=== PATIENT | female | born 1955 | race Caucasian/White ===

== ENCOUNTER → 2017-01-30 | Outpatient (CLI) | payer BC ==
--- NOTE | 2017-02-02 08:50 | MM ---
Reason for exam: history of breast cancer, conservation therapy. Last mammogram was performed 1 year ago. History: Patient is postmenopausal, has history of breast cancer at age 46, and has history of high-risk lesion on a previous biopsy at age 46. Excisional biopsy of the left breast, August 24, 2001. Malignant stereotactic core biopsy of the left breast, July 23, 2001. Lumpectomy of the left breast. Took tamoxifen for 1 year beginning at age 46. Physical Findings: Nurse did not find any significant physical abnormalities on exam. MG 3D Diag Mammo W/Cad SANDIP Bilateral CC and MLO view(s) were taken. Prior study comparison: January 21, 2016, bilateral MG 3d diag mammo w/cad SANDIP. December 11, 2014, bilateral MG diagnostic mammo w CAD SANDIP. February 11, 2012, CAD bilateral diagnostic mammogram. December 17, 2010, CAD bilateral diagnostic mammogram. There are scattered fibroglandular densities. No significant new findings when compared with previous films. These results were verbally communicated with the patient and result sheet given to the patient on 01/30/17. ASSESSMENT: Negative, BI-RAD 1 RECOMMENDATION: Follow-up diagnostic mammogram of both breasts in 1 year.
== END | disposition home or self-care (01) ==
LOC: RADMAMWWP 09:27
PROVIDERS: ATTEND Family Medicine
DX: N63 Unspecified lump in breast (principal)
CPT/HCPCS: G0204; G0279

== ENCOUNTER → 2018-04-01 | Outpatient (CLI) | payer BC ==
--- NOTE | 2018-04-07 22:08 | HM ---
HOLTER MONITOR REPORT The patient was monitored for 24 hours. The patient's rhythm is sinus mechanism with normal conduction. The average rate 88 beats per minute. Minimum 58, maximum 148 beats per minute. Ventricular ectopic activity was present in the form of single PVCs. Supraventricular ectopic activity was present in the form of single PVCs. No symptoms were reported. CONCLUSION: 1. Sinus mechanism baseline rhythm. 2. Rare ventricular ectopic activity. 3. Rare supraventricular ectopic activity. 4. No symptoms were reported. MMODL / IJN: [id number] /
== END | disposition home or self-care (01) ==
LOC: RADECHMAIN 11:28
PROVIDERS: ATTEND Family Medicine
DX: R00.2 Palpitations (principal)
CPT/HCPCS: 93225; 93226

== ENCOUNTER → 2018-07-14 | Outpatient (CLI) | payer MEDICARE ==
--- NOTE | 2018-07-14 12:15 | XR ---
EXAMINATION TYPE: XR thoracic spine complete DATE OF EXAM: 07/14/2018 COMPARISON: NONE HISTORY: Pain Alignment is anatomic. There is no compression deformities. Degenerative change involving the visual ized lower cervical spine. Moderate severe multilevel degenerative disc disease. There is a mild supe rior endplate compression fracture age-indeterminate in the midthoracic region. Pedicles are intact. Biapical pleural thickening and calcification. IMPRESSION: 1. Multilevel moderate to severe degenerative disc disease. Mild superior endplate compression fractu re in the mid thoracic spine is of indeterminate age. Correlate with MRI.
== END | disposition home or self-care (01) ==
LOC: RADXRMAIN 11:11
PROVIDERS: ATTEND Family Medicine
DX: M51.34 Other intervertebral disc degeneration, thoracic region (principal); M48.54XA Collapsed vertebra, not elsewhere classified, thoracic region, initial encounter for fracture
CPT/HCPCS: 72072

== ENCOUNTER → 2018-08-02 | Outpatient (CLI) | payer MEDICARE ==
--- NOTE | 2018-08-02 14:52 | MR ---
EXAMINATION TYPE: MR thoracic spine wo con DATE OF EXAM: 08/02/2018 COMPARISON: Plain films 07/14/2018 HISTORY: Intervertebral disc degeneration, thoracic Standard multiplanar, multisequence MRI departmental protocol Multiplanar, multisequence images of the thoracic spine were acquired 3.0 Nuvia magnet. FINDINGS: There is a superior endplate compression deformity of T7 with approximately 30% loss of an terior vertebral body height. No posterior wall displacement is evident. No spinal canal stenosis pre sent. T4-5: Small central disc herniation is present without cord contact. No spinal canal stenosis is pres ent. T7-8: Small left paracentral disc bulge is present with mild anterior thecal sac contact. No cord con tact is evident. No spinal canal stenosis present. Vertebral body heights are preserved. There is a kyphosis in the upper thoracic spine. Disc desiccati on is present diffusely. Spinal cord maintains normal signal through its visualized course. IMPRESSION: 1. Superior endplate compression of T7 without retropulsion. No stenosis is present. 2. Degenerative disc changes with small disc herniations present T4-5 and T7-8 discussed above. No co rd contact is evident.
== END | disposition home or self-care (01) ==
LOC: RADMRIMAIN 06:52
PROVIDERS: ATTEND Physician Assistant
DX: M51.24 Other intervertebral disc displacement, thoracic region (principal); M51.34 Other intervertebral disc degeneration, thoracic region; G95.29 Other cord compression
CPT/HCPCS: 72146

== ENCOUNTER → 2018-08-03 | Outpatient (CLI) | payer MEDICARE ==
--- NOTE | 2018-08-03 08:59 | MM ---
Reason for exam: additional evaluation requested from prior study. Last mammogram was performed 1 year and 6 months ago. History: Patient is postmenopausal, has history of breast cancer at age 46, and has history of high-risk lesion on a previous biopsy at age 46. Excisional biopsy of the left breast, August 24, 2001. Malignant stereotactic core biopsy of the left breast, July 23, 2001. Lumpectomy of the left breast. Took tamoxifen for 1 year beginning at age 46. Physical Findings: Nurse did not find any significant physical abnormalities on exam. MG 3D Diag Mammo W/Cad SANDIP Bilateral CC and MLO view(s) were taken. Prior study comparison: January 30, 2017, bilateral MG 3d diag mammo w/cad SANDIP. January 21, 2016, bilateral MG 3d diag mammo w/cad SANDIP. The breast tissue is heterogeneously dense. This may lower the sensitivity of mammography. Benign calcifications bilaterally. No significant new findings when compared with previous films. These results were verbally communicated with the patient and result sheet given to the patient on 08/03/18. ASSESSMENT: Benign, BI-RAD 2 RECOMMENDATION: Follow-up diagnostic mammogram of both breasts in 1 year.
== END | disposition home or self-care (01) ==
LOC: RADBDWWP 08:03
PROVIDERS: ATTEND Family Medicine
DX: Z08 Encounter for follow-up examination after completed treatment for malignant neoplasm (principal); Z85.3 Personal history of malignant neoplasm of breast
CPT/HCPCS: 77066; G0279; 77062

== ENCOUNTER → 2018-08-10 | Outpatient (CLI) | payer MEDICARE ==
--- NOTE | 2018-08-10 15:14 | BD ---
EXAMINATION TYPE: Axial Bone Density DATE OF EXAM: 08/10/2018 COMPARISON: 2009 CLINICAL HISTORY: post menopausal, Z 78.0 Height: 5'1 1/2 Weight: 142 FRAX RISK QUESTIONS: Family History (Parent hip fracture): y Secondary Osteoporosis: 3. Menopause before 45: y RISK FACTORS HISTORY OF: Postmenopausal woman: y MEDICATIONS: Thyroid Medications: Which medication: Levothyroxine How Lon years Additional Medications: high blood pressure Additional History: breast cancer age 46 EXAM MEASUREMENTS: Bone mineral densitometry was performed using the [employer] System. Bone mineral density as measured about the Lumbar spine is: ----- L1-L4(G/cm2): 0.842 T Score Values are as follows: ----- L2: -3.4 ----- L3: -3.1 ----- L4: -2.1 ----- L1-L 4:-2.8 Bone mineral density has: Decreased -8.2% since study of: 05/17/2010 Bone mineral density about the R hip (g/cm2): 0.739 Bone mineral density about the L hip (g/cm2): 0.727 T Score values are as follows: -----R Neck: -2.2 -----L Neck: -2.2 -----R Total: -2.4 -----L Total: -2.6 Bone mineral density has: Decreased -12.4% since study of: 05/17/2010 IMPRESSION: Osteoporosis (T Score less than -2.5). There is increased fracture risk and therapy is usually indicated based on age. Re-Screen 1-2 years. NOTE: T-SCORE=SD OF THE YOUNG ADULT MEAN.
== END | disposition home or self-care (01) ==
LOC: RADBDWWP 10:36
PROVIDERS: ATTEND Family Medicine
DX: M81.0 Age-related osteoporosis without current pathological fracture (principal); Z78.0 Asymptomatic menopausal state
CPT/HCPCS: 77080

== ENCOUNTER → 2018-08-31 | Outpatient (CLI) | payer MEDICARE ==
[~2018-08-31] MED LIST: DENOSUMAB 60 MG/ML 1 ML SYRINGE SQ ONE
[2018-08-31 14:44] VITALS: BP 139/79; PULSE 54; RESP 16; TEMP 97.8
== END ==
LOC: PROCWHC3 14:24
PROVIDERS: ATTEND Midwife
DX: M81.0 Age-related osteoporosis without current pathological fracture (principal)
CPT/HCPCS: 96372; J0897

== ENCOUNTER → 2019-03-02 | Outpatient (CLI) | payer MEDICARE ==
[~2019-03-02] MED LIST changes: +DENOSUMAB 60 MG/ML 1 ML SYRINGE SQ NR; -DENOSUMAB 60 MG/ML 1 ML SYRINGE SQ ONE
[2019-03-02 10:14] VITALS: BP 149/87; PULSE 84; RESP 16; TEMP 98.2
== END ==
LOC: PROCWHC3 10:03
PROVIDERS: ATTEND Midwife
DX: M81.0 Age-related osteoporosis without current pathological fracture (principal)
CPT/HCPCS: 96372; J0897

== ENCOUNTER → 2019-08-04 | Outpatient (CLI) | payer MEDICARE ==
--- NOTE | 2019-08-04 11:12 | MM ---
Reason for exam: additional evaluation requested from prior study. Last mammogram was performed 1 year ago. History: Patient is postmenopausal, has history of breast cancer at age 46, and has history of high-risk lesion on a previous biopsy at age 46. Excisional biopsy of the left breast, August 24, 2001. Malignant stereotactic core biopsy of the left breast, July 23, 2001. Lumpectomy of the left breast. Took tamoxifen for 1 year beginning at age 46. Physical Findings: Nurse did not find any significant physical abnormalities on exam. MG 3D Diag Mammo W/Cad SANDIP Bilateral CC and MLO view(s) were taken. Prior study comparison: August 03, 2018, bilateral MG 3d diag mammo w/cad SANDIP. January 30, 2017, bilateral MG 3d diag mammo w/cad SANDIP. The breast tissue is heterogeneously dense. This may lower the sensitivity of mammography. Finding #1: Architectural distortion in the upper quadrant of the left breast consistent with known excisional changes. Finding #2: There are typically benign round calcifications in both breasts. There is no discrete abnormality. These results were verbally communicated with the patient and result sheet given to the patient on 08/04/19. ASSESSMENT: Benign, BI-RAD 2 RECOMMENDATION: Follow-up diagnostic mammogram of both breasts in 1 year.
--- NOTE | 2019-08-05 11:44 | ECHOF ---
Referral Reason:K92.1 Bloody stools; R19.4 Change in bowel habits MEASUREMENTS -------- HEIGHT: 160.0 cm WEIGHT: 61.2 kg BP: RVIDd: 3.1 cm (< 3.3) IVSd: 0.9 cm (0.6 - 1.1) LVIDd: 3.0 cm (3.9 - 5.3) LVPWd: 0.9 cm (0.6 - 1.1) IVSs: 1.5 cm LVIDs: 1.5 cm LVPWs: 1.3 cm LAESV Index (A-L): 25.27 ml/m Ao Diam: 2.5 cm (2.0 - 3.7) AV Cusp: 1.6 cm (1.5 - 2.6) LA Diam: 2.9 cm (2.7 - 3.8) MV EXCURSION: 12.495 mm (> 18.000) MV EF SLOPE: 57 mm/s (70 - 150) EPSS: 0.2 cm MV E Brian: 0.82 m/s MV DecT: 242 ms MV A Brian: 0.78 m/s MV E/A Ratio: 1.05 RAP: 5.00 mmHg RVSP: 30.49 mmHg FINDINGS -------- Sinus rhythm. This was a technically good study. The left ventricular size is normal. Left ventricular wall thickness is normal. Overall left vent ricular systolic function is normal with, an EF between 55 - 60 %. The diastolic filling pattern is normal for the age of the patient 11.73. The right ventricle is normal in size. The left atrial size is normal. The right atrial size is normal. Interatrial and interventricular septum intact. The aortic valve is trileaflet and appears structurally normal. The mitral valve is normal. There is trace mitral regurgitation. The tricuspid valve appears structurally normal. Mild tricuspid regurgitation present. Right vent ricular systolic pressure is normal at < 35 mmHg. Pulmonic valve appears structurally normal. The aortic root size is normal. Normal inferior vena cava with normal inspiratory collapse consistent with estimated right atrial pre ssure of 5 mmHg. There is no pericardial effusion. CONCLUSIONS -------- 1. Sinus rhythm. 2. This was a technically good study. 3. The left ventricular size is normal. 4. Left ventricular wall thickness is normal. 5. Overall left ventricular systolic function is normal with, an EF between 55 - 60 %. 6. The diastolic filling pattern is normal for the age of the patient 11.73 7. The right ventricle is normal in size. 8. The left atrial size is normal. 9. The right atrial size is normal. 10. Interatrial and interventricular septum intact. 11. The aortic valve is trileaflet and appears structurally normal. 12. The mitral valve is normal. 13. There is trace mitral regurgitation. 14. The tricuspid valve appears structurally normal. 15. Mild tricuspid regurgitation present. 16. Right ventricular systolic pressure is normal at < 35 mmHg. 17. Pulmonic valve appears structurally normal. 18. The aortic root size is normal. 19. Normal inferior vena cava with normal inspiratory collapse consistent with estimated right atrial pressure of 5 mmHg. 20. There is no pericardial effusion. TRIAGE SPECIALIST: Elissa Benito RDCS
== END | disposition home or self-care (01) ==
LOC: RADMAMWWP 09:38
PROVIDERS: ATTEND Family Medicine
DX: R92.8 Other abnormal and inconclusive findings on diagnostic imaging of breast (principal); I07.1 Rheumatic tricuspid insufficiency; I10 Essential (primary) hypertension
CPT/HCPCS: 93306; 77066; G0279; 77062

== ENCOUNTER → 2019-09-05 | Outpatient (CLI) | payer MEDICARE ==
[~2019-09-05] MED LIST changes: -DENOSUMAB 60 MG/ML 1 ML SYRINGE SQ NR; +DENOSUMAB 60 MG/ML 1 ML SYRINGE SQ ONE
[2019-09-05 09:28] VITALS: PULSE 76; RESP 18; TEMP 98.1
[2019-09-05 09:33] VITALS: BP 171/96
== END | disposition home or self-care (01) ==
LOC: PROCWHC3 09:13
PROVIDERS: ATTEND Family Medicine
DX: M81.0 Age-related osteoporosis without current pathological fracture (principal)
CPT/HCPCS: 96372; J0897

== ENCOUNTER → 2020-09-06 | Outpatient (CLI) | payer MEDICARE ==
[~2020-09-06] MED LIST changes: +DENOSUMAB 60 MG/ML 1 ML SYRINGE SQ NR; -DENOSUMAB 60 MG/ML 1 ML SYRINGE SQ ONE
[2020-09-06 11:25] VITALS: BP 157/90; PULSE 103; RESP 16; TEMP 98.2
== END | disposition home or self-care (01) ==
LOC: PROCWHC3 11:16
PROVIDERS: ATTEND Family Medicine
DX: M81.0 Age-related osteoporosis without current pathological fracture (principal)
CPT/HCPCS: 96372; J0897

== ENCOUNTER → 2020-10-16 | Outpatient (CLI) | payer MEDICARE ==
--- NOTE | 2020-10-17 07:45 | MM ---
Reason for exam: additional evaluation requested from prior study. Last mammogram was performed 1 year and 2 months ago. History: Patient is postmenopausal, has history of breast cancer at age 46, and has history of high-risk lesion on a previous biopsy at age 46. Excisional biopsy of the left breast, August 24, 2001. Malignant stereotactic core biopsy of the left breast, July 23, 2001. Lumpectomy of the left breast. Took tamoxifen for 1 year beginning at age 46. Physical Findings: Nurse did not find any significant physical abnormalities on exam. MG 3D Diag Mammo W/Cad SANDIP Bilateral CC and MLO view(s) were taken. Prior study comparison: August 04, 2019, bilateral MG 3d diag mammo w/cad SANDIP. August 03, 2018, bilateral MG 3d diag mammo w/cad SANDIP. There are scattered fibroglandular densities. Benign oil cyst calcifications. Superior anterior asymmetric density disperses on additional views. 8 x 5mm oval circumscribed isodense to low density area persists on 3D central 6 o'clock left breast. These results were verbally communicated with the patient and result sheet given to the patient on 10/16/20. ASSESSMENT: Incomplete: need additional imaging evaluation, BI-RAD 0 RECOMMENDATION: Ultrasound of the left breast. at and just below nipple)
--- NOTE | 2020-10-17 07:46 | USB ---
Reason for exam: additional evaluation requested from abnormal screening. History: Patient is postmenopausal, has history of breast cancer at age 46, and has history of high-risk lesion on a previous biopsy at age 46. Excisional biopsy of the left breast, August 24, 2001. Malignant stereotactic core biopsy of the left breast, July 23, 2001. Lumpectomy of the left breast. Took tamoxifen for 1 year beginning at age 46. US Breast Limited LT Left limited breast ultrasound including focal area of concern, retroareolar and axilla demonstrates no cystic or solid lesion seen. Scanned 3-9 o'clock. These results were verbally communicated with the patient and result sheet given to the patient on 10/16/20. ASSESSMENT: Probably benign, BI-RAD 3 RECOMMENDATION: Follow-up diagnostic mammogram of the left breast in 6 months.
== END | disposition home or self-care (01) ==
LOC: RADMAMWWP 14:39
PROVIDERS: ATTEND Family Medicine
DX: R92.8 Other abnormal and inconclusive findings on diagnostic imaging of breast (principal)
CPT/HCPCS: 77066; 76642; G0279; 77062

== ENCOUNTER → 2020-11-01 | Outpatient (CLI) | payer MEDICARE ==
--- NOTE | 2020-11-01 16:19 | BD ---
EXAMINATION TYPE: Axial Bone Density DATE OF EXAM: 11/01/2020 COMPARISON: NONE CLINICAL HISTORY: Height: 5 FT 2 IN Weight: 127 FRAX RISK QUESTIONS: Alcohol (3 or more units per day): NO Family History (Parent hip fracture): YES Glucocorticoids (More than 3mos): NO (Ex: prednisone, prednisolone, methylprednisolone, dexamethasone, and hydrocortisone). History of Fracture in Adulthood: NO Secondary Osteoporosis: 1. Type 1 Diabetes: NO 2. Hyperthyroidism: NO 3. Menopause before 45: UNSURE 4. Malnutrition: NO 5. Chronic liver disease: NO Rheumatoid Arthritis: NO Current Tobacco Use: NO RISK FACTORS HISTORY OF: Family History of Osteoporosis: YES Active: NO Diet low in dairy products/other sources of calcium: NO Postmenopausal woman: PART HYST AGE 36 SYMPTOMS IN HER 40'S Take estrogen and/or progesterone medications: NONE Lost more than 2 inches in height since high school: NO MEDICATIONS: Thyroid Medications: YES Which medication: SYNTHROID How Long: APPROX 37 YEARS Additional Medications: BLOOD PRESSURE MEDS, SYNTHROID, CELEXA Additional History: BREAST CANCER AGE 46 EXAM MEASUREMENTS: Bone mineral densitometry was performed using the [employer] System. Bone mineral density as measured about the Lumbar spine is: ----- L1-L4(G/cm2): 0.902 T Score Values are as follows: ----- L2: -2.2 ----- L3: -2.7 ----- L4: -1.8 ----- L1-L4: -2.3 Bone mineral density has: INCREASED 7.6 % since study of: 2017 Bone mineral density about the R hip (g/cm2): 0.742 Bone mineral density about the L hip (g/cm2): 0.723 T Score values are as follows: -----R Neck: -2.1 -----L Neck: -2.3 -----R Total: -2.4 -----L Total: -2.4 Bone mineral density has: INCREASED 1.6 % since study of: 2018 IMPRESSION: Osteopenia (T Score between -2.5 and -1). There is slightly increased risk of fracture and the patient may be considered for treatment. Re-Screen 2-5 years. NOTE: T-SCORE=SD OF THE YOUNG ADULT MEAN.
== END | disposition home or self-care (01) ==
LOC: RADBDWWP 12:40
PROVIDERS: ATTEND Family Medicine
DX: M85.80 Other specified disorders of bone density and structure, unspecified site (principal); Z78.0 Asymptomatic menopausal state
CPT/HCPCS: 77080

== ENCOUNTER → 2021-03-19 | Outpatient (CLI) | payer MEDICARE ==
--- NOTE | 2021-03-20 08:42 | XR ---
EXAMINATION TYPE: XR chest 2V DATE OF EXAM: 03/19/2021 COMPARISON: NONE TECHNIQUE: PA and lateral views submitted. HISTORY: Hypercalcemia FINDINGS: The lungs are clear and there is no pneumothorax, pleural effusion, or focal pneumonia. Heart size normal. Atherosclerotic change aorta. Biapical pleural thickening. Hypertrophic and degenerative peña ge of the spine. Mild hyperinflation. IMPRESSION: 1. No acute process.
== END | disposition home or self-care (01) ==
LOC: RADXRMAIN 15:41
PROVIDERS: ATTEND Family Medicine
DX: E83.52 Hypercalcemia (principal)
CPT/HCPCS: 71046

== ENCOUNTER → 2021-05-10 | Outpatient (CLI) | payer MEDICARE ==
--- NOTE | 2021-05-10 15:43 | US ---
EXAMINATION TYPE: US thyroid st tissue head/neck DATE OF EXAM: 05/10/2021 COMPARISON: NONE CLINICAL HISTORY: E21.3 Hyperparathyroidism. Hyperparathyroidism. GLAND SIZE: Right Lobe: 2.9 x .6 x .8 cm Overall Parenchyma: homogenous Left Lobe: 2.8 x .6 x .8 cm Overall Parenchyma: homogeneous Isthmus Thickness: .2 cm NODULES RIGHT: # of nodules measured on right: 0 LEFT: # of nodules measured on left: 0 ISTHMUS: # of nodules measured in the isthmus: 0 Bilateral neck scanned, no evidence of lymphadenopathy. IMPRESSION: No definite solid thyroid nodules are seen. 2017 ACR TI-RADS LEVEL: TR-RADS 1 - BENIGN: No FNA *Highest TI-RADS level nodule reported
--- NOTE | 2021-05-13 08:03 | MM ---
Reason for exam: follow-up at short interval from prior study. Last mammogram was performed 7 months ago. History: Patient is postmenopausal, has history of breast cancer at age 46, and has history of high-risk lesion on a previous biopsy at age 46. Excisional biopsy of the left breast, August 24, 2001. Malignant stereotactic core biopsy of the left breast, July 23, 2001. Lumpectomy of the left breast. Took tamoxifen for 1 year beginning at age 46. Physical Findings: Nurse did not find any significant physical abnormalities on exam. MG 3D Diag Mammo W/Cad LT CC and MLO view(s) were taken of the left breast. Prior study comparison: October 16, 2020, bilateral MG 3d diag mammo w/cad SANDIP. August 04, 2019, bilateral MG 3d diag mammo w/cad SANDIP. August 03, 2018, bilateral MG 3d diag mammo w/cad SANDIP. There are scattered fibroglandular densities. Asymmetries are not significantly changes in the left breast since July 2018. These results were verbally communicated with the patient and result sheet given to the patient on 05/10/21. ASSESSMENT: Benign, BI-RAD 2 RECOMMENDATION: Routine screening mammogram of both breasts in 5 months. Back on schedule for September 2021. [facility]
== END | disposition home or self-care (01) ==
LOC: RADMAMWWP 14:17
PROVIDERS: ATTEND Family Medicine
DX: R92.8 Other abnormal and inconclusive findings on diagnostic imaging of breast (principal); Z85.3 Personal history of malignant neoplasm of breast; Z78.0 Asymptomatic menopausal state
CPT/HCPCS: 77065; 76536; G0279; 77061

== ENCOUNTER → 2021-08-14 | Outpatient (CLI) | payer MEDICARE ==
--- NOTE | 2021-08-14 13:22 | XR ---
Lumbar spine HISTORY: M 52.5, numbness in feet 3 views of the lumbar spine No comparisons Bone mineralization is reduced. There is a spinal curvature. Lumbar vertebral bodies show preserved h eight. Multilevel spondylosis is present. Sclerosis is present in the posterior elements of the lower lumbar spine. Anterolisthesis grade 1 L5-S1. Loss of disc height is present at intervertebral levels , there is associated vacuum phenomenon suspected L5-S1, L4-5. Atherosclerotic vascular calcification s are present in the aortoiliac distribution. IMPRESSION: Osteopenia, scoliosis, degenerative disc disease and facet arthropathy.
== END | disposition home or self-care (01) ==
LOC: RADXRMAIN 11:44
PROVIDERS: ATTEND Family Medicine
DX: M51.36 Other intervertebral disc degeneration, lumbar region (principal); M47.816 Spondylosis without myelopathy or radiculopathy, lumbar region; M41.86 Other forms of scoliosis, lumbar region
CPT/HCPCS: 72100

== ENCOUNTER → 2021-09-28 | Outpatient (CLI) | payer MEDICARE ==
--- NOTE | 2021-09-28 10:54 | MR ---
EXAMINATION TYPE: MR lumbar spine wo/w con DATE OF EXAM: 09/28/2021 COMPARISON: None HISTORY: Numbness in lower back. TECHNIQUE: Multiplanar, multisequence images of the lumbar spine were acquired without and with 5 mL intravenous Gadavist gadolinium contrast. Findings: Lumbar vertebral segments are normal in height and there is no fracture. There is a slight anterolisthesis of L5 on S1. There is moderate degenerative disc disease throughout the lumbar spine from L1 through S1 where ther e is moderate decreased signal intensity, loss of height and circumferential disc bulge. There are no lumbar disc herniations. There is moderate facet arthropathy at the L3-4, L4-5 and L5-S1 level. Secondary to mild thickening l igamentum flavum, disc bulge and facet arthropathy there is a mild spinal stenosis at the L4-5 level. The conus medullaris and cauda equina appear normal. The neuroforamina are patent The paraspinal soft tissues are unremarkable. IMPRESSION: 1. Slight anterolisthesis of L5 and S1. 2. No lumbar spine fracture. 3. Moderate degenerative disc disease throughout the lumbar spine as described above. 4. Mild spinal stenosis at the L4-5 level. 5. No lumbar disc herniation.
== END | disposition home or self-care (01) ==
LOC: RADMRIMAIN 09:47
PROVIDERS: ATTEND Family Medicine
DX: M48.061 Spinal stenosis, lumbar region without neurogenic claudication (principal); M43.17 Spondylolisthesis, lumbosacral region; M51.36 Other intervertebral disc degeneration, lumbar region
CPT/HCPCS: 72158; A9585

== ENCOUNTER → 2021-10-25 | Outpatient (CLI) | payer MEDICARE ==
--- NOTE | 2021-10-25 10:15 | US ---
EXAMINATION TYPE: US duplex aorta DATE OF EXAM: 10/25/2021 COMPARISON: NONE CLINICAL HISTORY: I70.0 Atherosclerosis of aorta. EXAM MEASUREMENTS: Abdominal Aorta: Proximal: 1.8cm by 1.7 cm Mid: 1.4cm by 1.3 cm Distal: 1.2 by 1.4 cm Bifurcation: Rt: 0.9 Lt: 1.0cm Aorta visualized to the bifurcation. IMPRESSION: No ultrasound evidence for greater than 3.0 cm AAA
== END | disposition home or self-care (01) ==
LOC: RADUSWWP 09:40
PROVIDERS: ATTEND Family Medicine
DX: I70.0 Atherosclerosis of aorta (principal)
CPT/HCPCS: 93979

== ENCOUNTER → 2022-10-17 | Outpatient (CLI) | payer MEDICARE ==
--- NOTE | 2022-10-17 11:23 | BD ---
EXAMINATION TYPE: Axial Bone Density DATE OF EXAM: 10/17/2022 COMPARISON: 11-01-20 CLINICAL HISTORY: 67 years year old Female. ICD-10 CODE: Z78.0 asymptomatic menopausal Height: 69IN Weight: 139LB FRAX RISK QUESTIONS: Family History (Parent hip fracture): YES Secondary Osteoporosis: RISK FACTORS HISTORY OF: Family History of Osteoporosis: YES Active: YES Postmenopausal woman: YES Lost more than 2 inches in height since high school: NO Poor Health: FAIR MEDICATIONS: Thyroid Medications: Which medication: Levothyroxine How Long: ABOUT 40 YEARS Osteoporosis Medications: Which medication: Boniva How Long: ABOUT 1.5YEARS Additional Medications: BP MED, VITAMIN D Additional History: BREAST CANCER AGE 46 EXAM MEASUREMENTS: Bone mineral densitometry was performed using the [employer] System. Bone mineral density as measured about the Lumbar spine is: ----- L1-L4(G/cm2): 1.042 T Score Values are as follows: ----- L1: -0.1 ----- L2: -1.7 ----- L3: -2.2 ----- L4: -0.7 ----- L1-L4: -1.1 Bone mineral density has: Increased 10.2% since study of: 11-01-20 Bone mineral density about the R hip (g/cm2): 0.743 Bone mineral density about the L hip (g/cm2): 0.688 T Score values are as follows: -----R Neck: -1.7 -----L Neck: -2.4 -----R Total: -2.1 -----L Total: -2.5 Bone mineral density has: Increased 1.6% since study of: 11-01-20 FRAX%s: The graph provided illustrates a 11.2% chance for a major osteoporotic fx and a 4.2% chance f or the hips probability for fx in 10 years time. IMPRESSION: Osteopenia (T Score between -2.5 and -1). There is slightly increased risk of fracture and the patient may be considered for treatment. Re-Screen 2-5 years. NOTE: T-SCORE=SD OF THE YOUNG ADULT MEAN.
--- NOTE | 2022-10-20 07:54 | MM ---
Reason for Exam: Screening (asymptomatic). Last mammogram was performed 2 year(s) and 0 month(s) ago. Patient History: Menarche at age 9. First Full-Term at age 23. Hysterectomy at age 36. Postmenopausal. Patient has history of breast feeding. Breast cancer, left, age 46. Previous LCIS pathology result at age 46. Tamoxifen for 1 year from age 46 until age 47. Lumpectomy on the Left side. 08/24/2001, Malignant Excisional Biopsy on the left side. 07/23/2001, Malignant Stereotactic Core Biopsy on the left side. Prior Study Comparison: 01/21/2016 Bilateral Diagnostic Mammogram, [facility]. 01/30/2017 Bilateral Diagnostic Mammogram, [facility]. 08/03/2018 Bilateral Diagnostic Mammogram, [facility]. 08/04/2019 Bilateral Diagnostic Mammogram, [facility]. 10/16/2020 Bilateral Diagnostic Mammogram, [facility]. 05/10/2021 Left Diagnostic Mammogram, [facility]. Tissue Density: The breast tissue is heterogeneously dense. This may lower the sensitivity of mammography. Findings: Analyzed By CAD. Benign-appearing round calcifications throughout bilateral breasts are redemonstrated. Stable distortion upper aspect left breast. There is no suspicious new group of microcalcifications or new suspicious mass in either breast. Overall Assessment: Benign, BI-RAD 2 Management: Screening Mammogram of both breasts in 1 year. A clinical breast exam by your physician is recommended on an annual basis and results should be correlated with mammographic findings. Electronically signed and approved by: Konrad Fry M.D.
== END | disposition home or self-care (01) ==
LOC: RADMAMWWP 10:12
PROVIDERS: ATTEND Family Medicine
DX: Z12.31 Encounter for screening mammogram for malignant neoplasm of breast (principal); M85.89 Other specified disorders of bone density and structure, multiple sites; Z78.0 Asymptomatic menopausal state
CPT/HCPCS: 77063; 77067; 77080

== ENCOUNTER → 2023-10-19 | Outpatient (CLI) | payer MEDICARE ==
--- NOTE | 2023-10-20 12:26 | MM ---
Reason for Exam: Screening (asymptomatic). Last screening mammogram was performed 12 month(s) ago. Patient History: Menarche at age 9. First Full-Term at age 23. Hysterectomy at age 36. Postmenopausal. Patient has history of breast feeding. Breast cancer, left, age 46. Previous LCIS pathology result at age 46. Tamoxifen for 1 year from age 46 until age 47. Lumpectomy on the Left side. 08/24/2001, Malignant Excisional Biopsy on the left side. 07/23/2001, Malignant Stereotactic Core Biopsy on the left side. Prior Study Comparison: 10/16/2020 Bilateral Diagnostic Mammogram, [facility]. 05/10/2021 Left Diagnostic Mammogram, [facility]. 10/17/2022 Bilateral MG 3D screening mammo w/cad, [facility]. Tissue Density: The breast tissue is heterogeneously dense. This may lower the sensitivity of mammography. Findings: Analyzed By CAD. There is no suspicious group of microcalcifications or new suspicious mass in either breast. Overall Assessment: Benign, BI-RAD 2 Management: Screening Mammogram of both breasts in 1 year. . Patient should continue monthly self-breast exams. A clinical breast exam by your physician is recommended on an annual basis. This exam should not preclude additional follow-up of suspicious palpable abnormalities. Note on Kina scores and lifetime risk: 1. A Kina score greater than 3% is considered moderate risk. If this is the case, consider specialist referral to assess eligibility for a risk reducing agent. 2. If overall lifetime risk for the development of breast cancer is 20% or higher, the patient may qualify for future screening with alternating mammogram and breast MRI. Electronically signed and approved by: Kike Carlin M.D. Radiologis
== END | disposition home or self-care (01) ==
LOC: RADMAMWWP 10:07
PROVIDERS: ATTEND Family Medicine
DX: Z12.31 Encounter for screening mammogram for malignant neoplasm of breast (principal); Z85.3 Personal history of malignant neoplasm of breast; Z78.0 Asymptomatic menopausal state
CPT/HCPCS: 77063; 77067

== ENCOUNTER → 2024-11-29 | Outpatient (CLI) | payer MEDICARE ==
--- NOTE | 2024-11-30 07:15 | MM ---
Reason for Exam: Screening (asymptomatic). Last mammogram was performed 1 year(s) and 2 month(s) ago. Patient History: Menarche at age 9. First Full-Term at age 23. Hysterectomy at age 36. Postmenopausal. Patient has history of breast feeding. Breast cancer, left, age 46. Previous LCIS pathology result at age 46. Tamoxifen for 1 year from age 46 until age 47. Lumpectomy on the Left side. 08/24/2001, Malignant Excisional Biopsy on the left side. 07/23/2001, Malignant Stereotactic Core Biopsy on the left side. Prior Study Comparison: 05/10/2021 Left Diagnostic Mammogram, [facility]. 10/17/2022 Bilateral MG 3D screening mammo w/cad, [facility]. 10/19/2023 Bilateral MG 3D screening mammo w/cad, [facility]. Tissue Density: There are scattered areas of fibroglandular density. Findings: Analyzed By CAD. Right breast: There is no suspicious group of microcalcifications or new suspicious mass. Left breast: There is no suspicious group of microcalcifications or new suspicious mass. Benign-appearing calcifications left breast. Overall Assessment: Benign, BI-RAD 2 Management: Screening Mammogram of both breasts in [address] [facility] will attempt to contact patient to return for supplemental views and ultrasound if indicated. Patient should continue monthly self-breast exams. A clinical breast exam by your physician is recommended on an annual basis. This exam should not preclude additional follow-up of suspicious palpable abnormalities. Note on Kina scores and lifetime risk: 1. A Kina score greater than 3% is considered moderate risk. If this is the case, consider specialist referral to assess eligibility for a risk reducing agent. 2. If overall lifetime risk for the development of breast cancer is 20% or higher, the patient may qualify for future screening with alternating mammogram and breast MRI. [facility], , 11/30/2024 7:12 AM. Electronically signed and approved by: Moi Maza DO
--- NOTE | 2024-12-05 07:40 | BD ---
EXAMINATION TYPE: Axial Bone Density DATE OF EXAM: 11/29/2024 CLINICAL HISTORY: 69 years old Female. ICD-10 CODE: Z78.0 Postmenopausal , Additional History: Height: 60.5 in Weight: 128 lbs FRAX RISK QUESTIONS: Secondary Osteoporosis: 3. Menopause before 43: partial hysterectomy age 36 RISK FACTORS MEDICATIONS: Thyroid Medications: yes Which medication: Levothyroxine How Lon+ years Osteoporosis Medications: yes Which medication: Boniva How Lon years EXAM MEASUREMENTS: Bone mineral densitometry was performed using the numberFire System. Bone mineral density as measured about the Lumbar spine is: ----- L1-L4(G/cm2): 0.980 T Score Values are as follows: ----- L1: -1.2 ----- L2: -1.6 ----- L3: -3.5 ----- L4: -0.7 ----- L1-L4: -1.7 Z Score Values are as follows: ----- L1: 0.7 ----- L2: 0.3 ----- L3: -1.6 ----- L4: 1.3 ----- L1-L4: 0.3 Bone mineral density has: Decreased -6.0% since study of: 10/17/2022 Bone mineral density about the R hip (g/cm2): 0.726 Bone mineral density about the L hip (g/cm2): 0.700 T Score values are as follows: -----R Neck: -2.0 -----L Neck: -2.7 -----R Total: -2.2 -----L Total: -2.4 Z Score values are as follows: -----R Neck: -0.1 -----L Neck: -0.8 -----R Total: -0.5 -----L Total: -0.7 Bone mineral density has: Decreased -0.4% since study of: 10/17/2022 FRAX%s: The graph provided illustrates a 16.8% chance for a major osteoporotic fx and a 5.0% chance f or the hips probability for fx in 10 years time. IMPRESSION: NOTE: T-SCORE=SD OF THE YOUNG ADULT MEAN. [facility], , 12/05/2024 7:38 AM
== END | disposition home or self-care (01) ==
LOC: RADMAMWWP 12:36
PROVIDERS: ATTEND Family Medicine
DX: Z12.31 Encounter for screening mammogram for malignant neoplasm of breast (principal); R92.323 Mammographic fibroglandular density, bilateral breasts; Z78.0 Asymptomatic menopausal state
CPT/HCPCS: 77063; 77067; 77080

== ENCOUNTER 2025-05-19 09:21 | Emergency (ER) | payer MEDICARE ==
--- NOTE | 2025-05-19 09:49 | ED ---
General Adult HPI - General Chief complaint: Animal Bite Stated complaint: animal bite (L hand) Time Seen by Provider: 05/19/25 09:22 Source: patient, RN notes reviewed, old records reviewed Mode of arrival: ambulatory Limitations: no limitations - History of Present Illness Initial comments: 69-year-old female presenting with raccoon bite to the left hand. This occurred just prior to arrival. Patient had a raccoon outside of her door and when she went to shoot the animal away popped up and bit her left hand in the webspace between the 1st and 2nd digit. Patient is uncertain of her tetanus prophylaxis. Bleeding was controlled prior to arrival and the wound was copiously irrigated by her daughter who is a nurse. - Related Data Home Medications Medication Instructions Recorded Confirmed [id number] 1 tab PO DAILY PRN 08/31/18 05/22/25 [Excedrin] Calcium Carbonate/Vitamin D3 2 tab PO DAILY 08/31/18 05/22/25 [Calcium 500-Vit D3 200 Tablet] Irbesartan [Avapro] 300 mg PO DAILY 08/31/18 05/22/25 Lansoprazole [Prevacid] 15 mg PO DAILY 08/31/18 05/22/25 Levothyroxine Sodium [Synthroid] 125 mcg PO DAILY 08/31/18 05/22/25 Non Formulary Drug 1 tab PO DAILY 08/31/18 05/22/25 [place]-3 Fatty Acids/Fish Oil [Fish 1 cap PO DAILY 08/31/18 05/22/25 Oil 1,000 mg Softgel] Previous Rx's Medication Instructions Recorded Amoxic-Pot Clav 875-125Mg 1 tab PO Q12HR 10 Days #20 tab 05/19/25 [Augmentin 875-125] Allergies Allergy/AdvReac Type Severity Reaction Status Date / Time No Known Allergies Allergy Verified 05/22/25 14:09 Review of Systems ROS Statement: Those systems with pertinent positive or pertinent negative responses have been documented in the HPI. ROS Other: All systems not noted in ROS Statement are negative. Past Medical History Past Medical History: GERD/Reflux, Hypertension, Thyroid Disorder Additional Past Medical History / Comment(s): OSTEOPOROSIS. History of Any Multi-Drug Resistant Organisms: None Reported Past Surgical History: Appendectomy, Hysterectomy, Tonsillectomy Additional Past Surgical History / Comment(s): PARATHYROID THYROID REMOVAL SURGERY. KIDNEY SURGERY. Past Anesthesia/Blood Transfusion Reactions: No Reported Reaction Past Psychological History: No Psychological Hx Reported Smoking Status: Never smoker Past Alcohol Use History: None Reported Past Drug Use History: None Reported General Exam Limitations: no limitations General appearance: alert, in no apparent distress Head exam: Present: atraumatic, normocephalic Eye exam: Present: normal appearance, PERRL ENT exam: Present: normal exam Neck exam: Present: normal inspection. Absent: tenderness, meningismus Respiratory exam: Present: normal lung sounds bilaterally. Absent: respiratory distress, wheezes Cardiovascular Exam: Present: regular rate, normal rhythm GI/Abdominal exam: Present: soft. Absent: distended, tenderness Extremities exam: Present: other (Millimeter laceration to the webspace between the 1st and 2nd digit left hand) Course Vital Signs 05/19/25 05/19/25 09:26 11:40 Temperature 97.9 F 98.4 F Pulse Rate 90 69 Respiratory 20 18 Rate Blood Pressure 170/95 152/88 O2 Sat by Pulse 97 99 Oximetry Medical Decision Making - Medical Decision Making Was pt. sent in by a medical professional or institution (, PA, CONCRETE STONE FINISHING SUPERVISOR, urgent care, hospital, or retirement...) When possible be specific @ -No Did you speak to anyone other than the patient for history (EMS, parent, family, police, friend...)? What history was obtained from this source @ -No Did you review nursing and triage notes (agree or disagree)? Why? @ -I reviewed and agree with nursing and triage notes Were old charts reviewed (outside hosp., previous admission, EMS record, old EKG, old radiological studies, urgent care reports/EKG's, retirement records)? Report findings @ -No old charts were reviewed Differential Diagnosis: Raccoon bite, laceration, puncture wound, infection and rabies exposure EKG interpreted by me (3pts min.). @ -As above X-rays interpreted by me (1pt min.). @ -None done CT interpreted by me (1pt min.). @ -None done U/S interpreted by me (1pt. min.). @ -None done What testing was considered but not performed or refused? (CT, X-rays, U/S, labs)? Why? @ -None What meds were considered but not given or refused? Why? @ -None Did you discuss the management of the patient with other professionals (professionals i.e. , PA, CONCRETE STONE FINISHING SUPERVISOR, lab, RT, psych nurse, social insurance administrator, extension course coordinator, teacher, deputy juvenile officer, field case manager)? Give summary @ -No Was smoking cessation discussed for >3mins.? @ -No Was critical care preformed (if so, how long)? @ -No Were there social determinants of health that impacted care today? How? (Homelessness, low income, unemployed, alcoholism, drug addiction, transportation, low edu. Level, literacy, decrease access to med. care, fci, rehab)? @ -No Was there de-escalation of care discussed even if they declined (Discuss DNR or withdrawal of care, Hospice)? DNR status @ -No What co-morbidities impacted this encounter? (DM, HTN, Smoking, COPD, CAD, Cancer, CVA, ARF, Chemo, Hep., AIDS, mental health diagnosis, sleep apnea, morbid obesity)? @ -None Was patient admitted / discharged? Hospital course, mention meds given and route, prescriptions, significant lab abnormalities, going to OR and other pertinent info. @ -69-year-old presenting for evaluation of raccoon bite to the left hand. Patient has a 5 mm laceration in the webspace between the 1st and 2nd digit. Patient will require updated tetanus and rabies prophylaxis. She is also placed on Augmentin for bacterial infection risk. Wound is left open to heal by secondary intention Undiagnosed new problem with uncertain prognosis? @ -No Drug Therapy requiring intensive monitoring for toxicity (Heparin, Nitro, Insulin, Cardizem)? @ -No Were any procedures done? @ -No Diagnosis/symptom? @ -Raccoon bite Acute, or Chronic, or Acute on Chronic? @ -Acute Uncomplicated (without systemic symptoms) or Complicated (systemic symptoms)? @ -Default Side effects of treatment? @ -No Exacerbation, Progression, or Severe Exacerbation? @ -No Poses a threat to life or bodily function? How? (Chest pain, [place], [place], pneumonia, PE, COPD, DKA, ARF, appy, cholecystitis, CVA, Diverticulitis, Homicidal, Suicidal, threat to staff... and all critical care pts) @Low risk at this time Disposition Clinical Impression: Bite by animal, Raccoon bite Disposition: HOME SELF-CARE Instructions (If sedation given, give patient instructions): Animal Bite (ED) Prescriptions: Amoxic-Pot Clav 875-125Mg [Augmentin 875-125] 1 tab PO Q12HR 10 Days #20 tab Is patient prescribed a controlled substance at d/c from ED?: No Referrals: Umberto Mcghee MD [Primary Care Provider] - 1-2 days Time of Disposition: 09:49
[2025-05-19] MEDS: DIPH,PERTUS(ACELL)TETVAC-LF 0.5 ML VIAL IM ONE (10:35)
[2025-05-19] MEDS: RABIES VACCINE (PCEC) 2.5 UNIT KIT IM ONE (10:36)
[2025-05-19] MEDS: RABIES IMM GLOB 300 UNIT/2 ML VIAL IM ONE (10:37)
[2025-05-19 11:42] VITALS: BP 152/88; PULSE 69; RESP 18; TEMP 98.4
== END 2025-05-19 11:41 | disposition home or self-care (01) ==
LOC: EC 09:21
DX: S61.452A Open bite of left hand, initial encounter (principal); Z23 Encounter for immunization; Z20.3 Contact with and (suspected) exposure to rabies; W55.51XA Bitten by raccoon, initial encounter
CPT/HCPCS: 90377; 90471; 90675; 90715; 96372; 99283